=== PATIENT | male | born 1990 | race Caucasian/White ===

== ENCOUNTER 2018-10-22 12:34 | Emergency (ER) | payer SELFPAY ==
--- NOTE | 2018-10-22 13:15 | ED ---
Psychiatric Complaint - HPI Summary HPI Summary: Patient is a 28-year-old male who presents to the ED with thoughts of self- harm. He states this is been happening for several years, however has been worsening. He has thoughts of suicide as well. He states he never acts on these and is very cautious that he never would act on these. He has a history of depression and anxiety, however does not see a counselor. Denies any drug use. Alcohol use last evening. He states this is intermittent and not every day. Friend at bedside. He states while he has thoughts of self-harm, he never acts upon them has never acted upon them in the past. He denies any physical symptoms, denies any pain, headache, agitation. He appears well on arrival and vital signs stable. - History Of Current Complaint Chief Complaint: EDPsychosocial Time Seen by Provider: 10/22/18 12:44 Hx Obtained From: Patient Onset/Duration: Sudden Onset Timing: Constant Severity Initially: Mild Severity Currently: Mild Aggravating Factor(s): Nothing Alleviating Factor(s): Nothing Associated Signs And Symptoms: Positive: Negative Has Suicidal: Reports: Thoughts - Without plan, prior attempt or gesture Ingestion History: Type/Name Of Drug - Recent alcohol use - Risk Factor(s) Completed Suicide Risk Factors: Male, White [place] - Allergies/Home Medications Allergies/Adverse Reactions: Allergies Allergy/AdvReac Type Severity Reaction Status Date / Time No Known Allergies Allergy Verified 10/22/18 12:41 PMH/Surg Hx/FS Hx/Imm Hx Previously Healthy: Yes - Immunization History Hx Pertussis Vaccination: No Immunizations Up to Date: Yes Infectious Disease History: No Infectious Disease History: Denies: Traveled Outside the [place] in Last 30 Days - Social History Occupation: Unemployed Lives: With Family Alcohol Use: Occasionally Hx Substance Use: No Substance Use Type: Reports: None Hx Tobacco Use: No Review of Systems Constitutional: Negative Negative: Fever, Chills, Fatigue, Skin Diaphoresis Negative: Palpitations, Chest Pain Negative: Shortness Of Breath, Cough Genitourinary: Negative Positive: no symptoms reported, see HPI Negative: Arthralgia, Myalgia Skin: Negative Neurological: Negative Positive: Anxious, Depressed All Other Systems Reviewed And Are Negative: Yes Physical Exam Triage Information Reviewed: Yes Vital Signs On Initial Exam: Initial Vitals Temp Pulse Resp BP Pulse Ox 98.0 F 63 17 139/68 98 10/22/18 12:38 10/22/18 12:38 10/22/18 12:38 10/22/18 12:38 10/22/18 12:38 Vital Signs Reviewed: Yes Appearance: Positive: Well-Appearing, Well-Nourished Skin: Positive: Warm, Skin Color Reflects Adequate Perfusion Head/Face: Positive: Normal Head/Face Inspection Eyes: Positive: EOMI, KIAN, Conjunctiva Clear Neck: Positive: Supple, No Lymphadenopathy Respiratory/Lung Sounds: Positive: Clear to Auscultation, Breath Sounds Present Cardiovascular: Positive: RRR, Pulses are Symmetrical in both Upper and Lower Extremities Musculoskeletal: Positive: Normal, Strength/ROM Intact Neurological: Positive: Speech Normal Psychiatric: Positive: Normal, Affect/Mood Appropriate Diagnostics - Vital Signs Vital Signs Temp Pulse Resp BP Pulse Ox 10/22/18 12:38 98.0 F 63 17 139/68 98 - Laboratory Result Diagrams: 10/22/18 13:26 10/22/18 13:26 Lab Statement: Any lab studies that have been ordered have been reviewed, and results considered in the medical decision making process. Course/Dx - Course Course Of Treatment: Patient is placed on constant observation immediately on arrival. After evaluation by myself, he is cleared for every 15 checks. Patient states he would never act upon the thoughts of self-harm and suicide. He states he's been feeling this way for several years and would like to speak with a counselor about these thoughts. He denies any attempts. He denies any pain. Labs are benign. UA is pending. He is cleared for mental health at 1: [address] Campuzano to see patient and OK for discharge home with mood disorder and depression. - Differential Dx/Clinical Impression Differential Diagnosis/HQI/PQRI: Positive: Depression Provider Diagnosis: Depression Discharge - Sign-Out/Discharge Documenting (check all that apply): Patient Departure Patient Received Moderate/Deep Sedation with Procedure: No - Discharge Plan Condition: Good Disposition: HOME Patient Education Materials: Depression (ED) Referrals: Geraldo Casas MD [Medical Doctor] - - Billing Disposition and Condition Condition: GOOD Disposition: Home
[2018-10-22 13:41] LABS: Hematocrit 43 % (42-52); Hemoglobin 14.5 g/dL (14.0-18.0); Mean Corpuscular HGB Conc 34 g/dL (31-36); Mean Corpuscular Hemoglobin 30 pg (27-31); Mean Corpuscular Volume 90 fL (80-94); Mean Platelet Volume 8.5 fL (7.4-10.4); Platelet Count 144 10^3/uL (150-450); Red Blood Count 4.77 10^6 /uL (4.18-5.48); Red Cell Distribution Width 14 % (10.5-15); White Blood Count 5.3 10^3/uL (3.5-10.8)
[2018-10-22 13:58] LABS: ALT 5 U/L (7-52); AST 20 U/L (13-39); Albumin 4.7 g/dL (3.2-5.2); Alkaline Phosphatase 69 U/L (34-104); Anion Gap 6 mmol/L (2-11); BUN/Creatinine Ratio 18.5 (8-20); Blood Urea Nitrogen 20 mg/dL (6-24); CO2 Carbon Dioxide 30 mmol/L (22-32); Calcium 9.8 mg/dL (8.6-10.3); Chloride 102 mmol/L (101-111); EGFR Non-African American 82.6 (>60); Globulin 2.3 g/dL (2-4); Glucose 146 mg/dL (70-100); Potassium 3.7 mmol/L (3.5-5.0); Sodium 138 mmol/L (135-145)
[2018-10-22 14:12] LABS: ABS Lymphocytes 1.1 10^3/ul (1.0-4.8); ABS Monocytes 0.2 10^3/ul (0-0.8); ABS Neutrophils 3.9 10^3/ul (1.5-7.7); Eosinophil % 0.3 %; Lymphocyte % 20.2 %
[2018-10-22 14:50] LABS: Alcohol < 10 mg/dL (<10); Salicylate < 2.50 mg/dL (<30)
[2018-10-22 15:02] LABS: TSH (Thyroid Stimulating Horm) 1.19 mcIU/mL (0.34-5.60)
[2018-10-22 15:12] VITALS: BP 00/00
[2018-10-22 15:28] LABS: Acetaminophen < 15 mcg/mL
== END 2018-10-22 15:11 | disposition home or self-care (01) ==
LOC: ED 12:34
DX: F32.9 Major depressive disorder, single episode, unspecified (principal)
CPT/HCPCS: 36415; 80053; 80320; 80329; 84443; 85025; 99284; G0480